=== PATIENT | male | born 1940 | race Two or more races ===

== ENCOUNTER 2017-09-26 06:10 | Day surgery (SDC) | payer OTHER | END 2017-09-26 10:45 | disposition home or self-care (01) | LOC: AMB-ENDOS 06:10 → CIR.AMB 13:30 → AMB-ENDOS 13:30 | DX: D12.0 Benign neoplasm of cecum (principal); D12.2 Benign neoplasm of ascending colon; D12.3 Benign neoplasm of transverse colon; D12.8 Benign neoplasm of rectum; K63.89 Other specified diseases of intestine; K57.30 Diverticulosis of large intestine without perforation or abscess without bleeding ==

== ENCOUNTER 2018-05-08 06:26 | Day surgery (SDC) | payer OTHER | END 2018-05-08 13:10 | disposition home or self-care (01) | LOC: AMB-ENDOS 06:26 | DX: D12.2 Benign neoplasm of ascending colon (principal); D12.3 Benign neoplasm of transverse colon ==